=== PATIENT | male | born 1990 ===

== ENCOUNTER 2019-10-08 13:54 | Emergency (ER) | payer SELFPAY ==
[~2019-10-08] VITALS: Ht 170.2 cm; Wt 67.1 kg
[2019-10-08 13:59] VITALS: BP 119/73
--- NOTE | 2019-10-08 13:59 | NUR ---
ED Nurse Note: Pt BIBA CO altered LOC due to alcohol intoxication. Paramedics report that pt's friend called 911 d/t pt being unresponsive. Pt was in a heavy sleep upon arrival but was rousable if shaken. Pt vs in stable condition, no s/s distress noted. ERMD at bedside.
--- NOTE | 2019-10-08 13:59 | Emergency Room Report ---
History of Present Illness General Chief Complaint: Alcohol Intoxication Source: EMS Present Illness HPI Disclaimer: Please note that this report is being documented using [employer] technology. This can lead to erroneous entry secondary to incorrect interpretation by the dictating instrument. HPI: Tiburcio Andrews of unknown age presents for evaluation of alcohol intoxication. EMS was called by a friend who was drinking with him throughout the day. He stated that he was vomiting profusely and saw some red tinge to the vomitus as well. EMS denies seeing any blood in the vomit on their inspection of the scene. He is somnolent and appears intoxicated. He is responding to painful stimuli. PMH: Unknown PSH: Unknown Allergies: Unknown Social Hx: Unknown Allergies: Coded Allergies: UNABLE TO ASSESS (Unverified , 10/08/19) Review of Systems All Other Systems: negative except mentioned in HPI Physical Exam Vital Signs Date Time Temp Pulse Resp B/P (MAP) Pulse Ox O2 Delivery O2 Flow Rate FiO2 10/08/19 13:45 97.2 97 20 136/72 (93) 99 Room Air General: Somnolent, arousable to painful stimuli. Afebrile HEENT: NC/AT. There is an abrasion over the left cheek that is healing. No evidence of acute injury. EOMI. pupils are 3 mm and reactive bilaterally. Dry mucous membranes with dried vomit around his mouth. Cardiovascular: RRR. S1 and S2 normal. No murmur appreciated Resp: Normal work of breathing. No cough, wheezing or crackles appreciated. Hiccuping Abdomen: Abdomen is soft, nondistended. Nontender Skin: Intact. No abrasions, laceration or rash over the exposed skin MSK: Normal tone and bulk. Moving all extremities. No obvious deformity. Neuro: Somnolent. Arousable to painful stimuli. GCS 9 E2, V2, M5 Medical Decision Making Diagnostic Impression: Primary Impression: Esophagitis Additional Impressions: Acute alcoholic intoxication Hematemesis Alcohol abuse ER Course Tiburcio Andrews presents by EMS for evaluation of vomiting and intoxication. Strong suspicion for alcohol abuse though other substances may be in play as well. Does not appear to have any acute injuries and has abrasion over his face appears to be healing well. EMS stated he had the abrasion on their last pickup of him last week. Will obtain a CBC to evaluate for significant blood losses, BMP for electrolyte abnormalities, drug screens of serum and urine and monitor for improvement. Can advance work-up as needed. Laboratory Tests Test 10/08/19 14:10 10/08/19 14:15 10/08/19 18:55 Prothrombin Time 9.9 SEC (9.30-11.50) Prothrombin Time INR 0.9 (0.9-1.1) Activated Partial Thromboplast Time 27 SEC (23-33) White Blood Count 11.9 K/UL (4.8-10.8) H 7.5 K/UL (4.8-10.8) Red Blood Count 4.18 M/UL (4.70-6.10) L 4.17 M/UL (4.70-6.10) L Hemoglobin 11.9 G/DL (14.2-18.0) L 11.9 G/DL (14.2-18.0) L Hematocrit 35.8 % (42.0-52.0) L 35.7 % (42.0-52.0) L Mean Corpuscular Volume 86 FL (80-99) 86 FL (80-99) Mean Corpuscular Hemoglobin 28.5 PG (27.0-31.0) 28.6 PG (27.0-31.0) Mean Corpuscular Hemoglobin Concent 33.2 G/DL (32.0-36.0) 33.5 G/DL (32.0-36.0) Red Cell Distribution Width 13.7 % (11.6-14.8) 13.9 % (11.6-14.8) Platelet Count 232 K/UL (150-450) 232 K/UL (150-450) Mean Platelet Volume 6.0 FL (6.5-10.1) L 5.8 FL (6.5-10.1) L Neutrophils (%) (Auto) 76.6 % (45.0-75.0) H 78.8 % (45.0-75.0) H Lymphocytes (%) (Auto) 13.3 % (20.0-45.0) L 16.2 % (20.0-45.0) L Monocytes (%) (Auto) 7.2 % (1.0-10.0) 3.1 % (1.0-10.0) Eosinophils (%) (Auto) 1.9 % (0.0-3.0) 0.7 % (0.0-3.0) Basophils (%) (Auto) 1.1 % (0.0-2.0) 1.2 % (0.0-2.0) Sodium Level 133 MMOL/L (136-145) L Potassium Level 3.6 MMOL/L (3.5-5.1) Chloride Level 95 MMOL/L (98-107) L Carbon Dioxide Level 24 MMOL/L (21-32) Anion Gap 14 mmol/L (5-15) Blood Urea Nitrogen 8 mg/dL (7-18) Creatinine 0.6 MG/DL (0.55-1.30) Estimate Glomerular Filtration Rate > 60 mL/min (>60) Glucose Level 93 MG/DL (74-106) Calcium Level 7.6 MG/DL (8.5-10.1) L Salicylates Level 0.6 ug/mL (2.8-20) L Urine Opiates Screen Negative (NEGATIVE) Acetaminophen Level < 2 MCG/ML (10-30) L Urine Barbiturates Screen Negative (NEGATIVE) Phencyclidine (PCP) Screen Negative (NEGATIVE) Urine Amphetamines Screen Negative (NEGATIVE) Urine Benzodiazepines Screen Negative (NEGATIVE) Urine Cocaine Screen Negative (NEGATIVE) Urine Marijuana (THC) Screen Negative (NEGATIVE) Serum Alcohol 446 mg/dL CT/MRI/US Diagnostic Results CT/MRI/US Diagnostic Results : Impression Preliminary Findings Only See Final Report For Complete Findings CT CHEST, ABDOMEN & PELVIS With Contrast: Indication: N/V TECHNIQUE: Axial computed tomography images of the chest, abdomen and pelvis with intravenous contrast. Coronal and sagittal reformatted images were created and reviewed. COMPARISON: none FINDINGS: CHEST: Mediastinum :Diffuse esophageal wall thickening. Bovine aortic arch. Ashley: Normal Lungs: Calcified granuloma in the lingula. Otherwise unremarkable lungs. Pleura: Normal Bones: Normal Chest wall: Normal ABDOMEN: Liver: Normal Gallbladder and bile ducts: Normal Pancreas: Normal Spleen: Normal Adrenals: Normal . Kidneys and ureters: Normal Stomach and bowel: Normal Appendix: Normal PELVIS: Bladder: Moderate uterine bladder distention. Reproductive: Normal ABDOMEN and PELVIS: Intraperitoneal space: No free intraperitoneal fluid or free intraperitoneal gas. Bones/joints: Unremarkable. No acute fracture. No dislocation. Soft tissues: Normal Vasculature: Normal. Lymph nodes: Normal . IMPRESSION: Diffuse esophageal wall thickening, presumably esophagitis. Recommend clinical correlation including endoscopy when clinically appropriate to exclude esophageal mass. Otherwise unremarkable chest abdomen and pelvis CT with IV contrast. Radiologist: Clarisa Elder MD Study ready at 16:06 and initial results transmitted at 16:13 Reevaluation Time: 14:55 Last Vital Signs Date Time Temp Pulse Resp B/P (MAP) Pulse Ox O2 Delivery O2 Flow Rate FiO2 10/08/19 13:45 97.2 97 20 136/72 (93) 99 Room Air Reevaluation Impression Alerted by nursing staff that the patient was having some coffee-ground emesis. His hemoglobin returned slightly anemic at 11.9 with a normal MCV. Platelets at 232. Mild elevation in white count at 11.9. Ordered IV fluids, antiemetics , antacids and CT scan of the torso to evaluate for esophageal injury. 1714: CT scan of the torso shows esophagitis but no obvious perforation, pneumomediastinum or other significant pathology. Likely Michelle-Sanches tear from his repeated emesis and esophagitis from irritation of gastric contacts during vomiting. Patient remains intoxicated but arousable. No further emesis. Labs otherwise unremarkable. We will continue to metabolize. 1909: Repeat H&H is stable. No evidence of significant bleed. Patient is receiving IV fluid and continues to sober up. He will be discharged once sober with outpatient follow-up for hematemesis. Included resources in his discharge paperwork for alcohol abuse. 2044: Patient is now awake and alert. He admits to drinking alcohol today. He denies any nausea or abdominal pain. I counseled him on alcohol cessation and getting help for his addiction. Also start him and on famotidine for his esophagitis, dyspepsia. Discussed need for follow-up with his PMD as well as reasons to return to the emergency department. He understands agrees with treatment plan was discharged home. Disposition: HOME, SELF-CARE Condition: Improved Scripts Famotidine* (Pepcid 20mg tablet*) 20 Mg Tablet 20 MG ORAL DAILY, #30 TAB 0 Refills Prov: Toby Deleon MD 10/08/19 Toby Deleon MD Oct 08, 2019 13:59
--- NOTE | 2019-10-08 14:23 | NUR ---
ED Nurse Note: All blood work and urine specimens sent to lab
[2019-10-08 14:39] LABS: BASOPHILS % (AUTO) 1.1 % (0.0-2.0); EOSINOPHILS % (AUTO) 1.9 % (0.0-3.0); HEMATOCRIT 35.8 % (42.0-52.0); HEMOGLOBIN 11.9 G/DL (14.2-18.0); LYMPHOCYTES % (AUTO) 13.3 % (20.0-45.0); MEAN CORPUSCULAR VOLUME 86 FL (80-99); MONOCYTES % (AUTO) 7.2 % (1.0-10.0); NEUTROPHILS % (AUTO) 76.6 % (45.0-75.0); PLATELET COUNT 232 K/UL (150-450); RED BLOOD COUNT 4.18 M/UL (4.70-6.10); RED CELL DISTRIBUTION WIDTH 13.7 % (11.6-14.8); WHITE BLOOD COUNT 11.9 K/UL (4.8-10.8)
--- NOTE | 2019-10-08 14:45 | NUR ---
ED Nurse Note: Pt vomited coffee ground emesis, approximately 250cc. ERMD notified.
[2019-10-08 15:00] LABS: ANION GAP 14 mmol/L (5-15); BLOOD UREA NITROGEN 8 mg/dL (7-18); CALCIUM 7.6 MG/DL (8.5-10.1); CARBON DIOXIDE 24 MMOL/L (21-32); CHLORIDE 95 MMOL/L (98-107); CREATININE 0.6 MG/DL (0.55-1.30); POTASSIUM 3.6 MMOL/L (3.5-5.1); SODIUM 133 MMOL/L (136-145)
[2019-10-08] MEDS ORDERED: Omnipaque-300 100ml vial INJ PRN (15:00)
--- NOTE | 2019-10-08 15:42 | NUR ---
ED Nurse Note: Pt taken to CT in stable condition, no s/s of distress
--- NOTE | 2019-10-08 15:50 | NUR ---
ED Nurse Note: Pt returned from CT, vs in stable condition, no s/s of distress noted.
[2019-10-08 15:51] LABS: INR 0.9 (0.9-1.1)
[2019-10-08 16:12] VITALS: BP 107/62
--- NOTE | 2019-10-08 16:13 | Diagnostic Imaging Report ---
INDICATION: 29-year-old male vomiting blood. Nausea vomiting TECHNIQUE: Continuous helical transaxial imaging of the chest, abdomen and pelvis was obtained from the lung bases to the pubic symphysis during intravenous contrast administration. Multiple phases of enhancement obtained. Coronal 2-D reformats were also obtained. Study obtained in a Siemens sensation [address] Automatic Exposure Control was utilized. Total Dose length Product (DLP): 1498.[address] Dose Index Volume (CTDIvol): 148.1 mGy COMPARISON: None FINDINGS: CT CHEST: No infiltrate demonstrated. The lungs are clear. No interstitial disease identified. No pleural or pericardial effusion is identified. No adenopathy seen. There is abnormal diffuse thickening of the wall the esophagus in the mid to lower portion in particular. Findings suspicious for esophagitis. Further evaluation with endoscopy is recommended. The heart, aorta and pulmonary artery appear unremarkable. There is no mediastinal air or fluid. CT ABDOMEN & PELVIS: The liver is hypodense consistent with fatty infiltration. Gallbladder is unremarkable. There is no biliary ductal dilatation identified. The kidneys enhance normally. There is no hydronephrosis. Spleen is unremarkable. Pancreas is unremarkable. Bowel gas pattern is nonobstructive. No evidence of bowel obstruction. Normal appendix noted. Urinary bladder is mildly distended but otherwise unremarkable. There is no free fluid. Aorta and IVC are unremarkable. No adrenal mass identified. IMPRESSION: Abnormal thickening of the wall of the esophagus. Esophagitis suspected. Correlation with endoscopy is recommended. Fatty liver. [facility] has communicated the preliminary results to the Emergency Department. Their findings are largely concordant with this report. The CT scanner at [facility] is accredited by the [employer] and the scans are performed using dose optimization techniques as appropriate to a performed exam including Automatic Exposure control.
--- NOTE | 2019-10-08 18:39 | NUR ---
ED Nurse Note: PTS VS DROPPED TO 88/24. ERMD AWARE. FLUIDS ORDERED AND REPEAT CBC.
[2019-10-08 19:02] VITALS: BP 95/45
[2019-10-08 19:06] LABS: BASOPHILS % (AUTO) 1.2 % (0.0-2.0); EOSINOPHILS % (AUTO) 0.7 % (0.0-3.0); HEMATOCRIT 35.7 % (42.0-52.0); HEMOGLOBIN 11.9 G/DL (14.2-18.0); LYMPHOCYTES % (AUTO) 16.2 % (20.0-45.0); MEAN CORPUSCULAR VOLUME 86 FL (80-99); MONOCYTES % (AUTO) 3.1 % (1.0-10.0); NEUTROPHILS % (AUTO) 78.8 % (45.0-75.0); PLATELET COUNT 232 K/UL (150-450); RED BLOOD COUNT 4.17 M/UL (4.70-6.10); RED CELL DISTRIBUTION WIDTH 13.9 % (11.6-14.8); WHITE BLOOD COUNT 7.5 K/UL (4.8-10.8)
[2019-10-08] MEDS ORDERED: FAMOTIDINE20 MG ORAL (19:14)
--- NOTE | 2019-10-08 19:15 | NUR ---
hANDOFF: report given to SHAMIKA Jackson. Pt vs in stable condition, pt is receiving IV fluids. Pt resting in bed. No s/s of distress noted.
--- NOTE | 2019-10-08 19:15 | NUR ---
ED Nurse Note: Received report from SHAMIKA Young.
--- NOTE | 2019-10-08 20:00 | NUR ---
HAND-OFF: Report given to SHAMIKA Perez.
[2019-10-08 20:45] VITALS: BP 108/56
--- NOTE | 2019-10-08 20:45 | NUR ---
ER Nurse Note: Pt is medically cleared to be discharged per ERMD. Discharge instructions and prescriptions given with repeat verbalization by pt. Emphazied pt follow up with [facility] within 3-5 days for further care. Pt is AOx4, VSS, on RA; no signs of acute distress. ID band removed; IV removed, site clean and bandaged. Pt is able to ambulate with steady gait. Pt took all belongings.
== END 2019-10-08 20:45 | disposition home or self-care (01) ==
LOC: EDBD 13:54 → EMR 14:30 → EDBD 14:30 → EMR 20:45
DX: F10.129 Alcohol abuse with intoxication, unspecified (principal); K92.0 Hematemesis; K20.9 Esophagitis, unspecified
CPT/HCPCS: 36415; 71260; 74177; 80048; 80307; 85025; 85610; 85730; 96361; 96374; 96375; 99284; G0480; J2405; J7030; Q9967; S0028